=== PATIENT | female | born 1980 | race Caucasian/White ===

== ENCOUNTER 2022-06-20 17:14 | Emergency (ER) | payer OTHER ==
[~2022-06-20] VITALS: Ht 147.3 cm; Wt 51.3 kg
[2022-06-20] MEDS ORDERED: MELOXICAM15 MG PO (21:32)
[2022-06-20] MEDS ORDERED: CYCLOBENZAPRINE10 MG PO (21:32)
== END 2022-06-20 21:49 | disposition home or self-care (01) ==
LOC: ED 17:14
DX: S13.4XXA Sprain of ligaments of cervical spine, initial encounter (principal); V49.9XXA Car occupant (driver) (passenger) injured in unspecified traffic accident, initial encounter; Z88.5 Allergy status to narcotic agent
CPT/HCPCS: 72040; 72070; 72100; 96372; 99284-25